=== PATIENT | male | born 1985 | race Caucasian/White ===

== ENCOUNTER 2023-05-20 14:24 | Outpatient (AMB) | payer BC, SELFPAY ==
--- NOTE | 2023-05-20 14:34 | A.OFFVIS_ITS ---
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 He has a pleasant 38-year-old male with prior history of hypertension, hyperlipidemia as well as obstructive sleep apnea. Patient uses CPAP regularly. He has been using his blood pressure medication on regular basis but notice that he continues to have some episodes of elevated blood pressures. He also has symptoms of palpitation which she describes as rapid heartbeat and sometimes skipped heartbeats. Comes here for further evaluation. There is no clear pattern to this. No associated symptoms. Denies any exertional chest pain or shortness of breath. No lightheadedness, syncope. He comes for further management of his risk factors as well as symptoms of pa lpitations. [facility] Medical History RAMIN (obstructive sleep apnea) Hyperlipidemia HTN (hypertension) Family History Father No problems noted. Mother HTN (hypertension) Maternal Aunt Sudden cardiac Social History Patient Tobacco Use Status: Never used Tobacco Review of Systems Const Denies chills, Denies daytime sleepiness, Denies fatigue, Denies fever(s), Denies frequent falls, Denies poor appetite, Denies snoring, Denies stops breathing during sleep, Denies weakness, Denies weight gain and Denies weight loss Eyes Denies loss of vision ENT Denies dizziness and Denies hearing loss Card Denies chest pain, Denies claudication, Denies leg edema, Denies lightheadedness, Denies palpitations, Denies dyspnea, Denies dyspnea on exertion and Denies orthopnea Resp Denies cough, Denies excessive phlegm production, Denies dyspnea, Denies dyspnea on exertion, Denies snoring and Denies wheezing GI Denies abdominal pain, Denies hematochezia, Denies change in bowel habits, Denies nausea and Denies vomiting Denies dysuria and Denies urinary frequency Musc Denies arthralgias, Denies muscle weakness, Denies numbness and Denies other (frequent falls) Skin/Breast Denies nail changes and Denies rash Neuro Denies Abnormal speech present, Denies dizziness, Denies frequent falls, Denies loss of vision, Denies memory loss, Denies numbness and Denies weakness Psych Denies depression and Denies memory loss Endo Denies fatigue and Denies palpitations Adolfo/Lymph Reports easy bruising and Reports other (anemia) Aller/Immun Denies wheezing Physical Exam Vital Signs: Last Vital Signs Pulse 91 05/20/23 14:39 BP 130/80 05/20/23 14:39 BMI result Body Mass Index 46.2 Const General: cooperative, comfortable, no acute distress, alert and awake Nutritional Appearance: obese morbidly obese Orientation/consciousness: patient oriented x3 Limitations: no limitations HEENT Head: Yes normocephalic and Yes atraumatic Neck Neck: Yes trachea midline, Yes supple and Yes no JVD Resp Effort & Inspection: normal respiratory effort Auscultation: clear to auscultation bilaterally Cardio Jugular venous distension: no JVD Palpation: normal PMI Rate: regular rate Rhythm: regular rhythm Heart sounds: S1 normal heart sound present, S2 normal heart sound present, no click, no gallops, no murmurs and no rubs GI Inspection: Yes obesity Auscultation: normal bowel sounds Skin General skin exam: no rashes or lesions noted Neuro General: patient oriented x3 and no focal motor deficits Speech: No Abnormal speech present Extrem General: Yes no clubbing, cyanosis or edema Psych Appearance: grossly normal Office Procedures EKG Details: EKG shows normal sinus rhythm normal EKG at 91 beats per minute [id number], Complete Assessment & Plan Assessment & Plan (1) Palpitations: Code(s): R00.2 - Palpitations Plan: Symptoms of palpitation this young man with risk factors of hypertension, obesity and sleep apnea. Atrial fibrillation needs to be ruled out. Most likely suggest isolated extra systoles such as PACs and PVCs. Will suggest a 14 day Holter monitor to further assess for the same. No pharmacotherapy is recommended. Continue CPAP therapy. Aggressive control of risk factors recommended. Continue to avoid stimulants. Stress mitigation strategies advised. (2) HTN (hypertension): Code(s): I10 - Essential (primary) hypertension Plan: Hypertension with borderline blood pressure control and still with episodes of elevated blood pressure. Have suggested him to start Norvasc 5 mg daily in addition to his losartan/hydrochlorothiazide therapy. Advised to monitor blood pressure at home with goal blood pressure less than and closer to 120/80. Suggest echocardiogram near future to evaluate for LV systolic and diastolic function to evaluate for biatrial chamber size and hypertensive heart disease. Further treatment based on the findings. He understands and agrees. Low-salt diet was discussed. Strongly encouraged to participate in aggressive weight loss program. For further screening can undergo coronary calcium score to evaluate for coronary atherosclerosis given his multiple risk factors. Will follow up in the clinic in 6 weeks time, sooner p.r.n.. Thank you for allowing me to partake in his care Orders: Orders ECG 14 day holter monitor 05/20/23 R00.2 - Palpitations CA echo transthoracic complete 05/20/23 I10 - Essential (primary) hypertension Complete Blood Count no Diff 05/20/23 I10 - Essential (primary) hypertension Basic Metabolic Panel 05/20/23 I10 - Essential (primary) hypertension Magnesium 05/20/23 I10 - Essential (primary) hypertension, I50.30 - Unspecified diastolic (congestive) heart failure TSH reflex Free T4 05/20/23 R00.2 - Palpitations Medications: New amlodipine (Norvasc) 5 mg PO DAILY 30 tabs 5RF R00.2 - Palpitations Coding Level of Care Code New Pt Level 4 (01730) Diagnoses Palpitations R00.2 HTN (hypertension) I10 CPT Codes EKG - CPT: 74998-[id number], Complete ([id number])
[2023-05-20 14:39] VITALS: BP 130/80; PULSE 91; BMI 46.2
== END 2023-05-20 15:08 | disposition home or self-care (01) ==
PROVIDERS: PCP Internal Medicine; Visit Provider Internal Medicine Cardiovascular Disease
DX: R00.2 Palpitations (principal); I10 Essential (primary) hypertension
CPT/HCPCS: 93010; 99204

== ENCOUNTER → 2023-05-20 14:24 | Outpatient (BNVA) | payer BC, SELFPAY | PROVIDERS: PCP Internal Medicine; Visit Provider Internal Medicine Cardiovascular Disease | DX: R00.2 Palpitations (principal); I10 Essential (primary) hypertension | CPT/HCPCS: 93005 ==

== ENCOUNTER → 2023-06-09 13:50 | Outpatient (REF) | payer BC, SELFPAY ==
--- NOTE | 2023-06-09 13:56 | CA_ITS ---
Transthoracic Echocardiogram Patient (Last, First, Middle): Neil Elder, Gender: Male Date of : 1985 Age: 38 Procedure Date: 06/09/2023 Procedure Type: Transthoracic Echocardiogram Location: OP Height: 165.1 cm Weight: 117.94 kg BSA: 2.21 m2 Heart Rate: 79 bpm BP: 130 / 80 mmHg Credit Representative: COREEN Referring MD: Guanaco Garcia MD Symptoms: I10 - Essential (primary) hypertension Study Quality: Adequate w contrast ECG Rhythm: Sinus Conclusions: - The left ventricular systolic function is low normal. The visually estimated ejection fraction is between 50-55%. - No obvious valvular pathology seen on this study. Findings Procedure Information Contrast agent, definity, is being given per protocol without apparent complications. The quality of the study was technically difficult. The study quality is limited by patients body habitus. Left Ventricle Normal left ventricular cavity size. The left ventricular systolic function is low normal. The visually estimated ejection fraction is between 50-55%. There is no evidence of regional wall motion abnormalities. Diastolic function is normal for age. Right Ventricle Normal right ventricular cavity size and systolic function. Atria Both atria are normal in size. Aortic Valve There is a normal trileaflet aortic valve. There is no aortic valve stenosis. There is no aortic valve regurgitation. Mitral Valve The mitral valve appears normal. There is no mitral valve regurgitation. There is no mitral valve stenosis. Pulmonic Valve The pulmonic valve is likely normal. Tricuspid Valve There is no tricuspid valve regurgitation. Tricuspid regurgitation envelope is inadequate for calculation of right ventricular systolic pressure. Great Vessels The asc aorta is normal in size. Venous The inferior vena cava was not well visualized. Pericardium/Pleural There is no evidence of pericardial effusion. Prior Study Comparison No prior study available for comparison. Recommendations, Care & Conclusions No obvious valvular pathology seen on this study. Measurements 2D Linear Measurements IVSd: 0.78 0.6-0.9/0.6-1.0 cm LVIDd: 5.15 3.9-5.3/4.2-5.9 cm LVIDd Index: 2.33 2.4-3.2/2.2-3.1 cm/m2 LVIDs: 3.79 2.0-3.6 cm LVPWd: 0.75 0.7-1.1 cm LA Diam: 3.50 2.7-3.8/3.0-4.0 cm LAIDs Index: 1.58 1.5-2.3 cm/m2 LV Mass: 168.36 67-162/88-224 g LV Mass Index: 76.18 43-95/49-115 g/m2 LVOT Diam: 1.90 3.0+(-)1.3 cm 2D Systolic Function EF 4C: 51.40 >55% EF 2C: 58.70 >55% EF BiP: 54.40 >55% Mitral Valve MV Pk E: 0.95 MV PK A: 0.76 MV Decel Time: 171.00 E/A: 1.20 E'Lateral: 10.40 E'Medial: 7.83 E/E' Med: 12.10 E/E' Lat: 9.10 PHT: 50.00 MVA PHT: 4.40 Decel Iron: 5.55 Aortic Valve AoV Pk Shabbir: 1.47 AoV Mn Shabbir: 0.97 AoV VTI: 0.27 AoV Pk Grad: 9.00 Aov Mn Grad: 5.00 DANISH Cont.VTI: 2.43 LVOT LVOT Pk Shabbir: 1.42 LVOT Mn Shabbir: 0.91 LVOT VTI: 0.23 LVOT Pk Grad: 8.00 LVOT Mn Grad: 4.00 LVOT Diam: 1.90 LVOT Area: 2.84 Diastolic Function MV Pk E: 0.95 MV Pk A: 0.76 E/A: 1.20 E'Medial: 7.83 E/E' Med: 12.10 E' Laterial: 10.40 E/E' Lat: 9.10 Right Ventricle TAPSE (mm): 19.90 TVS' Shabbir: 13.20 Tricuspid Valve RA Press: 3.00 Great Vessels Aorta Sinus of Valsalva: 2.90 2.0-3.5 cm Ao Asc: 3.00 2.1-3.4 cm Pulmonary Veins Pulm Vein S/D 1.20 Pulmonary Valve PV Pk Shabbir: 1.01 Peak PV Grad: 4.00 Updated in Other Vendor System with Status of Final Juan Alves MD electronically signed on 06/10/2023 11:10:45 AM with status of Final
--- NOTE | 2023-06-09 13:56 | HM_ITS ---
Conclusion: 1. Patient was monitored for total period of 13 days and 22 hours 2. Baseline was normal sinus rhythm with average heart of 91 beats per minute 3. No significant pauses noted 4. Frequent sinus tachycardia noted with 32% of time heart rate about 100 beats per minute 5. No significant arrhythmias noted 6. No patient reported events MTDD
== END ==
LOC: HO.CARD 13:50
PROVIDERS: PCP Internal Medicine; Visit Provider Internal Medicine Cardiovascular Disease
DX: R00.2 Palpitations (principal); I10 Essential (primary) hypertension
CPT/HCPCS: 93246; 93306; Q9957

== ENCOUNTER → 2023-06-09 13:56 | Outpatient (BNV) | payer BC, SELFPAY | PROVIDERS: PCP Internal Medicine; Visit Provider Internal Medicine | DX: R00.0 Tachycardia, unspecified (principal) | CPT/HCPCS: 93248; 93306 ==

== ENCOUNTER 2023-07-15 15:36 | Outpatient (AMB) | payer BC, SELFPAY ==
[2023-07-15 15:39] VITALS: BP 120/68; PULSE 87; BMI 44.0
--- NOTE | 2023-07-15 15:39 | A.OFFVIS_ITS ---
Vital Signs 07/15/23 15:39 Height 5 ft 4.5 in Weight 260 lb 2.327 oz BMI 44.0 BP 120/68 Blood Pressure Location Lt brachial Position Sitting Pulse 87 Pulse Source Pulse Oximeter Intake Visit Reasons: 6 week follow up Allergies No Known Allergies Allergy (Verified 05/20/23 14:44) Medication List - Last Reconciled 07/15/23 by Rupinder Munoz NP-C cyclobenzaprine 5 mg PO BID ezetimibe 10 mg PO DAILY losartan-hydrochlorothiazide 100-12.5 mg 1 tab PO DAILY naproxen 500 mg PO BID nortriptyline 50 mg PO BEDTIME rosuvastatin 40 mg PO DAILY HPI HPI 6 week follow up: Details: Neil is a 38-year-old male with past medical history of morbid obesity, hypertension, hyperlipidemia, sleep apnea with CPAP use who had an episode of heart palpitations while at work followed by ER evaluation without significant findings. He underwent a echocardiogram and Holter monitor and now presents for follow-up. Today he reports he has been doing well since his last visit. Not had any recurrent episodes where he felt his heart going fast. He does have a smart watch that does record some strips that he can see on his watch. Some of them say atrial fibrillation however when reviewed by me confirm these are sinus rhythm with motion artifact. No lightheadedness, presyncope, syncope, falls. No chest discomfort at rest or with activity. No shortness of breath, PND, orthopnea or edema. 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 He reports compliance with his CPAP mask. He tried the amlodipine and said it gave him headache and he is not taking it. Is taking his losartan/hydrochlorothiazide medication. [facility] Medical History (Updated 07/15/23 @ 16:29 by Rupinder Munoz NP-C) RAMIN (obstructive sleep apnea) Hyperlipidemia HTN (hypertension) Family History Father No problems noted. Mother HTN (hypertension) Maternal Aunt Sudden cardiac Social History Patient Tobacco Use Status: Never used Tobacco Review of Systems Const All systems reviewed & are unremarkable except as noted in HPI and below Denies weakness ENT Denies dizziness Card Denies chest pain, Denies chest pain with activity, Denies syncope, Denies rapid heart rate, Denies pedal edema, Denies edema, Denies leg edema, Denies lightheadedness, Denies palpitations, Denies dyspnea, Denies dyspnea on exertion and Denies orthopnea Resp Denies cough, Denies dyspnea and Denies dyspnea on exertion GI Denies hematochezia and Denies change in stool character Musc Denies abnormal gait, Denies muscle cramps, Denies muscle weakness, Denies numbness, Denies radiating pain into limb and Denies tingling Neuro Denies abnormal gait, Denies dizziness, Denies syncope, Denies numbness, Denies tingling and Denies weakness Endo Denies palpitations Physical Exam Vital Signs: Last Vital Signs Pulse 87 07/15/23 15:39 BP 120/68 07/15/23 15:39 BMI result Body Mass Index 44.0 Const Other: Morbid obesity General: cooperative, healthy appearing, comfortable and no acute distress Orientation/consciousness: patient oriented x3 Neck Neck: Yes normal visual inspection and Yes no JVD Resp Effort & Inspection: normal respiratory effort Auscultation: clear to auscultation bilaterally, no crackles, no rales, no rhonchi and no wheezes Cardio Jugular venous distension: no JVD Rate: regular rate Rhythm: regular rhythm Heart sounds: S1 normal heart sound present, S2 normal heart sound present, no murmurs and no rubs Skin General skin exam: no rashes or lesions noted Neuro General: patient oriented x3 Extrem General: Yes normal to inspection, No no pedal edema and No calf tenderness Psych Appearance: grossly normal Mental Status: mental status grossly normal Speech and movement: Normal speech and movement present Assessment & Plan Assessment & Plan (1) Palpitations: Code(s): R00.2 - Palpitations Category: Medical Plan: Episode of heart palpitations where he was at work and felt his heart going very rapidly. EMS was called and he declined ER evaluation at that time since he was in [place]. He had his pick him up and bring him to [facility] here in [place]. He reports no significant findings were identified at that time. He has not had episodes of rapid heartbeat since then. He does have a smart watch/ HAILEE which does show 2 strips that are labeled as atrial fibrillation. When reviewed by me there is clear P waves and regular rhythm. There is baseline motion artifact. EKG done on last visit shows normal sinus rhythm, rate 91. Holter monitor done on 06/09/2023 shows sinus rhythm with average heart rate 91, 32% of the time heart rate greater than 100. His echocardiogram showed EF 50-55%, normal valves, no evidence of regional wall motion abnormality. He is very active throughout the day and can walk up to 21,000 steps while at work. This can account for his mildly elevated heart rate. He does have a low normal EF however echo was technically difficult as patient has morbid obesity. His blood pressure is well controlled. At this time no medication changes made. Reviewed all the above with him. It is possible he had an episode of SVT. Discussed reduction in stimulants, caffeinated beverages. Maintain good hydration and get adequate rest. Continue with CPAP use. If he has recurrent episodes of rapid palpitations then will consider a cardiac event monitor. Cardiology follow-up in 6 months, sooner if needed. (2) HTN (hypertension): Code(s): I10 - Essential (primary) hypertension Category: Medical Plan: As above (3) RAMIN (obstructive sleep apnea): Code(s): G47.33 - Obstructive sleep apnea (adult) (pediatric) Category: Medical Plan: Compliant with CPAP Plan Time spent on chart review, documentation, interview and assessment Coding Level of Care Code Est Pt Level 3 (35842) Diagnoses Palpitations R00.2 HTN (hypertension) I10 RAMIN (obstructive sleep apnea) G47.33 Time Spent (min) 24
== END 2023-07-15 16:04 | disposition home or self-care (01) ==
PROVIDERS: PCP Internal Medicine; Visit Provider Nurse Practitioner Family
DX: R00.2 Palpitations (principal); I10 Essential (primary) hypertension; G47.33 Obstructive sleep apnea (adult) (pediatric)
CPT/HCPCS: 99213

== ENCOUNTER → 2023-07-15 15:36 | Outpatient (BNVA) | payer BC, SELFPAY | PROVIDERS: PCP Internal Medicine; Visit Provider Nurse Practitioner Family ==

== ENCOUNTER 2024-01-13 15:37 | Outpatient (AMB) | payer BC, SELFPAY ==
[2024-01-13 15:41] VITALS: BP 108/72; PULSE 82; BMI 45.1
--- NOTE | 2024-01-13 15:41 | MHC.OFFVIS ---
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 Allergies No Known Allergies Allergy (Verified 01/13/24 15:43) Medication List - Last Reconciled 01/13/24 by Rupinder Munoz, MALIK-C cyclobenzaprine 5 mg PO BID ezetimibe 10 mg PO DAILY losartan-hydrochlorothiazide 100-12.5 mg 1 tab PO DAILY metformin 1,000 mg PO BID naproxen 500 mg PO BID nortriptyline 50 mg PO BEDTIME rosuvastatin 40 mg PO DAILY HPI HPI 6m follow up: Details: Neil is a 38-year-old male with past medical history of morbid obesity, hypertension, hyperlipidemia, sleep apnea with CPAP use who had an episode of heart palpitations while at work followed by ER evaluation without significant findings. He underwent a echocardiogram and Holter monitor and now presents for follow-up. Today he reports he has been doing well since his last visit In June. He has not had any recurrent rapid heart palpitations. He has not recorded any new strips on his smart watch. No lightheadedness, presyncope, syncope, falls. No chest discomfort at rest or with activity. No shortness of breath, PND, orthopnea or edema. 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 He reports compliance with his CPAP mask. Is taking his losartan/hydrochlorothiazide medication. [facility] Medical History RAMIN (obstructive sleep apnea) Hyperlipidemia HTN (hypertension) Family History Father No problems noted. Mother HTN (hypertension) Maternal Aunt Sudden cardiac Social History Patient Tobacco Use Status: Never used Tobacco Review of Systems Const All systems reviewed & are unremarkable except as noted in HPI and below ENT Denies dizziness Card Denies chest pain, Denies chest pain at rest, Denies chest pain with activity, Denies rapid heart rate, Denies pedal edema, Denies edema, Denies leg edema, Denies lightheadedness, Denies palpitations, Denies dyspnea, Denies dyspnea on exertion and Denies orthopnea Resp Denies cough, Denies dyspnea and Denies dyspnea on exertion GI Denies hematochezia and Denies change in stool character Musc Denies abnormal gait, Denies limited range of motion, Denies muscle cramps, Denies muscle weakness, Denies numbness, Denies radiating pain into limb, Denies stiffness and Denies tingling Neuro Denies abnormal gait, Denies dizziness, Denies numbness and Denies tingling Endo Denies palpitations Physical Exam Vital Signs: Last Vital Signs Pulse 82 01/13/24 15:41 BP 108/72 01/13/24 15:41 BMI result Body Mass Index 45.1 Const Other: Morbid obesity General: cooperative, healthy appearing, comfortable and no acute distress Orientation/consciousness: patient oriented x3 Neck Neck: Yes normal visual inspection and Yes no JVD Resp Effort & Inspection: normal respiratory effort Auscultation: clear to auscultation bilaterally, no crackles, no rales, no rhonchi and no wheezes Cardio Jugular venous distension: no JVD Rate: regular rate Rhythm: regular rhythm Heart sounds: S1 normal heart sound present, S2 normal heart sound present, no murmurs and no rubs Skin General skin exam: no rashes or lesions noted Neuro General: patient oriented x3 Extrem General: Yes normal to inspection, No no pedal edema and No calf tenderness Psych Appearance: grossly normal Mental Status: mental status grossly normal Speech and movement: Normal speech and movement present Assessment & Plan Assessment & Plan (1) Palpitations: Code(s): R00.2 - Palpitations Category: Medical Plan: Episode of heart palpitations while at work: His heart felt like it was going very rapidly. EMS was called and he declined ER evaluation at that time since he was in [place]. He had his pick him up and bring him to [facility] here in [place]. Once in the ER, palpitations had resolved and no significant findings were identified. He has not had Anyepisodes of rapid heartbeat since then. He does have a smart watch/ HAILEE and last visit showed me 2 strips that are labeled as atrial fibrillation however when reviewed by me there are clear P waves and regular rhythm. There is baseline motion artifact but no definite AFib.. EKG done on last visit shows normal sinus rhythm, rate 91. Holter monitor done on 06/09/2023 shows sinus rhythm with average heart rate 91, 32% of the time heart rate greater than 100. His echocardiogram showed EF 50-55%, normal valves, no evidence of regional wall motion abnormality. He is very active throughout the day and can walk up to 21,000 steps while at work. This can account for his mildly elevated heart rate. He does have a low normal EF however echo was technically difficult as patient has morbid obesity. His blood pressure is well controlled. At this time no medication changes made. He continues to report no recurrent heart palpitations. It is possible he had an episode of SVT. Reviewed this with him and discussed ongoing reduction in stimulants, caffeinated beverages, Maintain good hydration and get adequate rest. Continue with CPAP use. If he has recurrent episodes of rapid palpitations then will plan for a repeat Holter or cardiac event monitor. At this time will put his cardiology follow-up as needed. (2) HTN (hypertension): Code(s): I10 - Essential (primary) hypertension Category: Medical Plan: As above (3) RAMIN (obstructive sleep apnea): Code(s): G47.33 - Obstructive sleep apnea (adult) (pediatric) Category: Medical Plan: Compliant with CPAP Plan Time spent on chart review, documentation, interview and assessment Coding Level of Care Code Est Pt Level 3 (23962) Diagnoses Palpitations R00.2 HTN (hypertension) I10 RAMIN (obstructive sleep apnea) G47.33 Time Spent (min) 24
== END 2024-01-13 16:10 | disposition home or self-care (01) ==
PROVIDERS: PCP Internal Medicine; Visit Provider Nurse Practitioner Family
DX: R00.2 Palpitations (principal); I10 Essential (primary) hypertension; G47.33 Obstructive sleep apnea (adult) (pediatric)
CPT/HCPCS: 99213

== ENCOUNTER 2024-11-01 17:06 | Emergency (ER) | payer BC, SELFPAY ==
--- NOTE | ~2024-11-01 | US_ITS ---
CLINICAL HISTORY: R testicular pain Ultrasound scrotum. COMPARISON: None provided. Technique: Real time sonographic imaging, including color-flow imaging, was performed by the vacuum metalizer operator. Multiple personnel representative static images were saved for review. FINDINGS: Right side: Right testicle is normal in size and echotexture. Normal color flow and spectral tracing. No hydrocele. There is increased Doppler flow within the right heterogeneous epididymis. Right testicle: 4.1 x 2.3 x 2.6 cm Left side: Left testicle is normal in size. Few small testicular microlithiasis present. Normal color flow and spectral tracing. No hydrocele. Mild dilatation of the pampiniform plexus measuring up to 3 mm. Normal left epididymis. Left testicle: 4.2 x 1.7 x 2.7 cm IMPRESSION: 1. Right-sided epididymitis. 2. Mild left varicocele. This document has been electronically signed by: Keyon Vaughn MD on 11/01/2024 18:43:01
--- NOTE | ~2024-11-01 | US_ITS ---
CLINICAL HISTORY: R testicular pain Ultrasound scrotum. COMPARISON: None provided. Technique: Real time sonographic imaging, including color-flow imaging, was performed by the shook splicer. Multiple product sales representative static images were saved for review. FINDINGS: Right side: Right testicle is normal in size and echotexture. Normal color flow and spectral tracing. No hydrocele. There is increased Doppler flow within the right heterogeneous epididymis. Right testicle: 4.1 x 2.3 x 2.6 cm Left side: Left testicle is normal in size. Few small testicular microlithiasis present. Normal color flow and spectral tracing. No hydrocele. Mild dilatation of the pampiniform plexus measuring up to 3 mm. Normal left epididymis. Left testicle: 4.2 x 1.7 x 2.7 cm IMPRESSION: 1. Right-sided epididymitis. 2. Mild left varicocele. This document has been electronically signed by: Keyon Vaughn MD on 11/01/2024 18:43:01
[2024-11-01 17:40] VITALS: BP 145/68; PULSE 85; RESP 16; TEMP 37; O2SAT 98; BMI 37.9
--- NOTE | 2024-11-01 17:41 | ED.MALEGU ---
HPI - Male Genitourinary General Chief complaint: Urogenital-Male Stated complaint: pain in testicle Time Seen by Provider: 11/01/24 19:27 Source: patient Mode of arrival: ambulatory History of Present Illness ED Provider: [facility] Narrative: 39-year-old male, monogamous, , denies any sexual relations outside of his marriage states that he has had some blood with his ejaculate and also describes that he has also had significant right testicular pain that has continued to worsen over the past 2-3 days. Related Data Home Medications ?Medication ?Instructions ?Recorded ?Confirmed cyclobenzaprine 5 mg tablet 5 mg PO BID 05/20/23 01/13/24 ezetimibe 10 mg tablet 10 mg PO DAILY 05/20/23 01/13/24 losartan 100 1 tab PO DAILY 05/20/23 01/13/24 mg-hydrochlorothiazide 12.5 mg tablet naproxen 500 mg tablet 500 mg PO BID 05/20/23 01/13/24 nortriptyline 50 mg capsule 50 mg PO BEDTIME 05/20/23 01/13/24 rosuvastatin 40 mg tablet 40 mg PO DAILY 05/20/23 01/13/24 metformin 1,000 mg tablet 1,000 mg PO BID 01/13/24 01/13/24 Previous Rx's ?Medication ?Instructions ?Recorded levofloxacin 500 mg tablet 500 mg PO DAILY #9 tabs 11/01/24 Allergies Allergy/AdvReac Type Severity Reaction Status Date / Time No Known Allergies Allergy Verified 11/01/24 17:41 Review of Systems Review of Systems: Pertinent positives and negatives as stated in HPI [facility] Past Medical History Attestation statement: The following information was validated with the patient. Source: nursing notes reviewed Medical History RAMIN (obstructive sleep apnea) Hyperlipidemia HTN (hypertension) Family History Family History Father No problems noted. Mother HTN (hypertension) Maternal Aunt Sudden cardiac Social History Social History Patient Tobacco Use Status: Never used Tobacco Smoked in Last 30 Days: No Use of substances other than those prescribed or required for medical reasons: No Physical Exam Exam: Exam: VITAL SIGNS: Reviewed. GENERAL: Well developed, well nourished, in no acute distress. HEAD: Normocephalic/atraumatic EYES: PERRLA, EOMI EARS: Ext canals without abnormality NOSE: Nares patent bilateral OROPHARYNX: no oral lesions noted, posterior pharynx clear NECK: Supple, no adenopathy LUNGS: Normal breath sounds. No adventitious sounds or accessory muscle use. CARDIOVASCULAR: Regular rate and rhythm without noted murmurs ABDOMEN: Soft, non-tender, non-distended with bowel sounds. : Uncircumcised male, there is mild erythema to the anterior surface of the scrotum but no extension posterior, no induration or fluctuance, there is tenderness to palpation of the right testicle and epididymis and no pain on palpation of the left testicle and epididymis. There are no lesions or ulcerations noted on the penis. MUSCULOSKELETAL: No tenderness, deformities, or effusions noted on gross inspection. EXTREMITIES: No cyanosis, clubbing or edema. SKIN: Inspection of the skin reveals no rashes NEUROLOGIC: Alert and oriented x 4. Strength and sensation to light touch were grossly intact x 4. Vital Signs: Vital Signs: Last Vital Signs Temp 98.1 F 11/01/24 19:24 Pulse 82 11/01/24 19:24 Resp 12 11/01/24 19:24 BP 137/87 11/01/24 19:24 Pulse Ox 98 11/01/24 19:24 O2 Del Method Room Air 11/01/24 19:24 BMI result Body Mass Index 37.9 Course Course Course Narrative: This is a Rapid Medical Examination (RME) performed by Mony Clarke PA-C in triage. Full HPI, ROS, assessment and treatment plan per primary provider in the Main ED. Hx: 39 yo M here for eval of right testicular pain/swelling since yesterday. also reports an prolonged erection lasting x hours a few days ago before resolving. no hx of ilicit substance use. reports blood tinge to his ejaculate. no urinary sx. no concern for STDs. no open wounds/ lesions. PE/vitals: area not visualized in triage. Plan: UA, ctng, ultrsound. 39-year-old male with history and clinical presentation, DD DX: Minimal suspicion for testicular torsion but will rule out, suspect epididymis orchitis. Will obtain urinary sample for STI as well as urinary tract infection. 2028: I reviewed and interpreted all investigations and there is evidence of UTI as well as my interpretation is in agreement with radiology's impression that there are findings of the ultrasound consistent with right epididymitis. Gonorrhea and chlamydia are pending, however I will treat patient empirically for non STI epididymitis. Medical Decision Making Lab Data Labs: Lab Results 11/01/24 Range/Units 19:33 Urine Color Yellow Urine Appearance Clear Urine pH 6.0 (5.0-9.0) Ur Specific [place] >= 1.030 H (1.005-1.025) Urine Protein Trace (Neg-Trace) mg/dL Urine Glucose (UA) Negative (Negative) mg/dL Urine Ketones Trace (Negative) mg/dL Urine Blood Negative (Negative) Urine Nitrite Negative (Negative) Ur Leukocyte Esterase Trace H (Negative) Urine RBC 0-2 (0-2) /HPF Urine WBC 6-10 H (0-5) /HPF Ur Squamous Epith Cells 0-2 (0-2) /HPF Urine Bacteria None Seen (None Seen) Hyaline Casts 0-2 (0-2) /LPF Discharge Plan Discharge Clinical Impression: Epididymo-orchitis Patient Disposition: Home, Self-Care Instructions: Epididymo-Orchitis (ED) Additional Instructions: Complete the entire course of antibiotics as prescribed. Tylenol 1000 mg, orally, every 6 hours as needed for pain control. Do not exceed 4000 mg within 24 hours. Ibuprofen 400 mg, orally with milk or food, every 6 hours as needed for pain control. I recommend taking these 2 together for improved symptom relief. Elevate the scrotum at night while sleeping, stick to standard tighty whiteys throughout the day do not wear Boxer's. You will need to log into the patient portal to obtain the remaining results of your workup today. Please follow-up with your primary care doctor and do not hesitate to return for any acute worsening of symptoms. Prescriptions: New levofloxacin 500 mg tablet 500 mg PO DAILY Qty: 9 0RF No Action cyclobenzaprine 5 mg tablet 5 mg PO BID losartan-hydrochlorothiazide 100-12.5 mg tablet 1 tab PO DAILY rosuvastatin 40 mg tablet 40 mg PO DAILY nortriptyline 50 mg capsule 50 mg PO BEDTIME ezetimibe 10 mg tablet 10 mg PO DAILY naproxen 500 mg tablet 500 mg PO BID metformin 1,000 mg tablet 1,000 mg PO BID Referrals: Antonia Schroeder MD [Primary Care Provider, Internal Medicine] Print Language: Belarusian
[2024-11-01 19:24] VITALS: BP 137/87; PULSE 82; RESP 12; TEMP 36.7; O2SAT 98
[2024-11-01 19:41] LABS: Appearance Urine Clear; Glucose Urine UA Negative (Negative); PH 6.0 (5.0-9.0); Specific Gravity - Urine >= 1.030 (1.005-1.025); UMIC TRIGGER UACC YES
[2024-11-01 19:44] LABS: UACC Culture Trigger YES
[2024-11-01 20:35] VITALS: BP 126/83; PULSE 79; RESP 16; TEMP 36.7; O2SAT 98
--- OUTSIDE RECORDS SUMMARY | 2024-11-01 20:44 | XMS_ITS ---
Author Name [facility] Organization Unknown History of Medication Use Medication Directions Dispensed Refills Start Date End Date Stat us propranolol (INDERAL LA) 120 MG 24 hr capsule 06/17/2015 active Encounters Encounter Type Encounter Reason Primary Diagnosis Location Date Ambulatory Encounter for ot her administrative examinations [facility] 05/26/2022 Ambulatory [place] [facility] 12/26/2021 Care Team Organization Name Specialty Phone Email Start Date End Da te [facility] NO PCP Primary Care 12/26/2021 12/26/2021 [facility] P[facility],No Primary Care 12/26/2021
--- OUTSIDE RECORDS SUMMARY | 2024-11-01 20:44 | XMS_ITS | Clinical Summary ---
Author Organization Formerly [facility] Address [address] [place] [address] Care Team Providers Care Financial Business Analyst Name Role Phone Pcp, No Primary Care Provider Unavailabl e Allergies No known active allergies Medications ibuprofen (MOTRIN) 800 mg tabletIndication s:Laceration of finger of left hand, initial encounter 1 po tid prn 30 tablet 0 08/02/2015 Active propranolol (INDERAL LA) 120 MG 24 hr capsule 06/17/2015 Ac tive meclizine (ANTIVERT) 25 MG tablet 05/19/2022 Active nortriptyline (PAMELOR) 50 MG capsule 05/19/2022 Active Active Problems No known active problems Immunizations Immunization Administration Dates Next Due Influenza Inactivated/Split Preservative Free IM 12/26/2021 Social History Tobacco Use Types Packs/Day Years Used Date Smoking Tobacco: Never Alcohol Use Standard Drinks/Week Comments Not Asked 0 (1 standard drink = 0.6 oz pur e alcohol) Sex and Gender Information Value Date Recorded Sex Assigned at Not on file Legal Sex Male 8:59 AM EDT Gender Identity Not on file Sexual Orientation Not on file Last Filed Vital Signs Vital Sign Reading Time Taken Comments Blood Pressure 110/80 05/26/2022 2:29 PM EDT Pulse 74 05/26/2022 2:29 PM EDT Temperature 36.6 C (97.9 F) 05/26/2022 2:29 PM EDT Respiratory Rate - - Oxygen Saturation 98% 05/26/2022 2:29 PM EDT Inhaled Oxygen Concentration - - Weight 113 kg (250 lb) 05/26/2022 2:29 PM EDT Height 165.1 cm (5' 5 ) 05/26/2022 2:29 PM EDT Body Mass Index 41.6 05/26/2022 2:29 PM EDT Plan of Treatment Health Maintenance Due Date Last Done Comments Hepatitis C Virus Screening 1985 HIV Screening 1998 DTaP/Tdap/Td Vaccines (1 - Tdap) 01/30/2004 Hepatitis B Vaccines (1 of 3 - 19+ 3-dose series) 01/30/2004 HPV Vaccines (1 - 3-dose SCD M series) 01/30/2012 Influenza Vaccine 09/22/2024 12/26/2021 COVID-19 Vaccine (1 - 2023-2 5 season) 2024 Pneumococcal Vaccine: Pediat dedra (0-5 Years) and At-Risk Patients (6 to 49 Years) Aged Out No longer eligible b ased on patient's age to complete this topic Insurance Care Teams Financial Business Analyst Relationship Specialty Start Date End Date Pcp, No PCP - General General Medicine 08/02/15
--- OUTSIDE RECORDS SUMMARY | 2024-11-01 20:44 | XMS_ITS | Clinical Summary ---
Author Organization [address] Address [address] [place] [address] Phone Care Team Providers Care Felting Machine Operator Name Role Phone Antonia Schroeder MD Primary Care Provider [phone] Social History Tobacco Use Types Packs/Day Years Used Date Smoking Tobacco: Never Assessed Sex and Gender Information Value Date Recorded Sex Assigned at Male 06/05/2024 3:45 PM EDT Legal Sex Male 10:26 AM EST Gender Identity Male 06/05/2024 3:45 PM EDT Sexual Orientation Straight 06/05/2024 3: 45 PM EDT Plan of Treatment Health Maintenance Due Date Last Done Comments Diabetes: Annual Foot Exam 1995 Diabetes: Annual Retina Eye Exam 1995 Hepatitis B Vaccines (1 of 3 - 19+ 3-dose series) 01/30/2004 Pneumococcal Vaccine: Pediatrics (0 to 5 Years) and At-Risk Patients (6 to 49 Years) (1 of 2 - PCV) 01/30/2004 HIV Screening 01/20/2022 Hepatitis C Screening 01/20/2022 Social Influencers of Health Screening 01/20/2022 Depression Screening 02/23/2024 COVID-19 Vaccine (3 - 2024-2 6 season) 2024 07/06/2020, 06/07/2020 Influenza Vaccine (#1) 2024 Diabetes: Blood Sugar Contro l Test (HGBA1C) 12/05/2024 06/05/2024, 01/17/2024 Diabetes: Annual Urine Albumin-Creatinine Ratio (uACR) 01/16/2025 01/17/2024 Diabetes: Annual GFR (Glomerular Filtration Rate) 06/05/2025 06/05/2024, 01/17/2024 Hypertension/CHF/CAD Annual BMP Blood Test 06/05/2025 06/05/2024, 01/17/2024 DTaP,Tdap,and Td Vaccines (2 - Td or Tdap) 08/01/2025 08/02/2015 Cholesterol Screening (Lipid Panel) 06/05/2029 06/05/2024, 01/17/2024 HIB Vaccines Aged Out No longer eligi ble based on patient's age to complete this topic HPV Vaccines Aged Out No longer eligi ble based on patient's age to complete this topic Hepatitis A Vaccines Aged Out No long er eligible based on patient's age to complete this topic IPV Vaccines Aged Out No longer eligi ble based on patient's age to complete this topic MMR Vaccines Aged Out No longer eligi ble based on patient's age to complete this topic Meningococcal ACWY Vaccine Aged Out N o longer eligible based on patient's age to complete this topic Meningococcal B Vaccine Aged Out No l onger eligible based on patient's age to complete this topic RSV Immunization Patients Under 20 months Aged Out No longer eligible b ased on patient's age to complete this topic Varicella Vaccines Aged Out No longer eligible based on patient's age to complete this topic Procedures Procedure Name Priority Date/Time Associated Diagnosis Comments COMPREHENSIVE METABOLIC PANEL Routine 06/05/2024 3:44 PM EDT Diabetes mellitus ([facility] V24, [facility] V28) Mixed hyperlipidemia Obstructive sleep apnea (adult) (pediatric) Essential hypertension, malignant HEMOGLOBIN A1C Routine 06/05/2024 3:44 PM EDT Diabetes mellitus ([facility] V24, [facility] V28) Mixed hyperlipidemia Obstructive sleep apnea (adult) (pediatric) Essential hypertension, malignant LIPID PANEL WITH REFLEX TO DIRECT LDL Routine 06/05/2024 3:44 PM EDT Diabetes mellitus ([facility]/H[facility] V24, [facility] V28) Mixed hyperlipidemia Obstructive sleep apnea (adult) (pediatric) Essential hypertension, malignant MICROALBUMIN CREATININE URINE RATIO Routine 01/17/2024 3:37 PM EST Diabetes mellitus ([facility]/HCC V24, [facility] V28) Morbid obesity ([facility] V24, [facility] V28) Mixed hyperlipidemia Nonspecific elevation of levels of transaminase or lactic acid dehydrogenase (LDH) from Last 3 Months or Most Recently Relevant to Health Maintenance Results * (ABNORMAL) Lipid panel with reflex to direct LDL (06/05/2024 3:44 PM EDT) Pathologist [facility] Cholesterol 229(H) 0 - 200 mg/dL LAB CHEMISTRY METHOD 06/05/2024 5:08 PM EDT [facility] Triglycerides 358(H) 0 - 150 mg/dL LAB CHEMISTRY METHOD 06/05/2024 5:08 PM EDT [facility] HDL 32(L) >=40 mg/dL LAB CHEMISTRY METHOD 06/05/2024 5:08 PM EDT [facility] LDL Calculated 125(H) 0 - 100 mg/dL LAB CHEMISTRY METHOD 06/05/2024 5:08 PM EDT [facility] VLDL Cholesterol Carlos Eduardo 71.6 mg/dL LAB CHEMISTRY METHOD 06/05/2024 5:08 PM EDT [facility] Non HDL Chol. (LDL+VLDL) 197(H) <145 mg/dL LAB CHEMISTRY METHOD 06/05/2024 5:08 PM EDT [facility] Chol/HDL Ratio 7.2(H) 0.0 - 4.4 LAB CHEMISTRY METHOD 06/05/2024 5:08 PM EDT [facility] Blood Venous blood specimen / Unknown Venipuncture / Unknown 06/05/2024 3:44 PM EDT 06/05/2024 4:07 PM EDT us Antonia Schroeder MD LAB BLOOD ORDERABLES Final Re sult [facility] [address] [place] [address], * Hemoglobin A1c (06/05/2024 3:44 PM EDT) Pathologist [facility] Hemoglobin A1C 6.3 <6.5 % LAB CHEMISTRY METHOD 06/05/2024 10:12 PM EDT [facility] Mean Bld Glu Estim. 134 mg/dL LAB CHEMISTRY METHOD 06/05/2024 10:[address] [facility] Blood Venous blood specimen / Unknown Venipuncture / Unknown 06/05/2024 3:44 PM EDT 06/05/2024 4:07 PM EDT us Antonia Schroeder MD LAB BLOOD ORDERABLES Final Re sult [facility] [address] [place] [address], [place] [phone] * Comprehensive metabolic panel (06/05/2024 3:44 PM EDT) Sodium 141 133 - 145 mmol/L LAB CHEMISTRY METHOD 06/05/2024 5:[address] [facility] Potassium 3.8 3.5 - 5.5 mmol/L LAB CHEMISTRY METHOD 06/05/2024 5:[address] [facility] Chloride 109 96 - 110 mmol/L LAB CHEMISTRY METHOD 06/05/2024 5:[address] [facility] CO2 28 21 - 32 mmol/L LAB CHEMISTRY METHOD 06/05/2024 5:[address] [facility] Anion Gap 4 3 - 11 LAB CHEMISTRY METHOD 06/05/2024 5:[address] [facility] Glucose 76 70 - 100 mg/dL LAB CHEMISTRY METHOD 06/05/2024 5:[address] [facility] BUN 16 5 - 25 mg/dL LAB CHEMISTRY METHOD 06/05/2024 5:[address] [facility] Creatinine 1.14 0.70 - 1.30 mg/dL LAB CHEMISTRY METHOD 06/05/2024 5:[address] [facility] eGFR 84 >=60 mL/min/1. 73m2 LAB CHEMISTRY METHOD 06/05/2024 5:08 PM T [facility] Comment:Calculation based on the Chronic Kidney Disease Epidemiology Collaboration (CKD-EPI) equation refit without adjustment for race. BUN/Creatinine Ratio 14.0 LAB CHEMISTRY METHOD 06/05/2024 5:08 PM T [facility] Calcium 8.9 8.5 - 10.5 mg/dL LAB CHEMISTRY METHOD 06/05/2024 5:[address] [facility] AST (SGOT) 27 10 - 42 unit/L LAB CHEMISTRY METHOD 06/05/2024 5:[address] [facility] ALT (SGPT) 53 10 - 60 unit/L LAB CHEMISTRY METHOD 06/05/2024 5:[address] [facility] Alkaline Phosphatase 62 42 - 121 unit/L LAB CHEMISTRY METHOD 06/05/2024 5:[address] [facility] Total Protein 7.4 6.0 - 8.0 g/dL LAB CHEMISTRY METHOD 06/05/2024 5:[address] [facility] Albumin 3.8 3.2 - 5.0 g/dL LAB CHEMISTRY METHOD 06/05/2024 5:[address] [facility] Total Bilirubin 0.3 0.0 - 1.4 mg/dL LAB CHEMISTRY METHOD 06/05/2024 5:[address] [facility] Blood Venous blood specimen / Unknown Venipuncture / Unknown 06/05/2024 3:44 PM EDT 06/05/2024 4:07 PM EDT us Antonia Schroeder MD LAB BLOOD ORDERABLES Final Re sult [facility] [address] [place] [address], [place] [phone] * Microalbumin creatinine urine ratio (01/17/2024 3:37 PM EST) Creatinine, Urine 160.0 mg/dL LAB CHEMISTRY METHOD 01/17/2024 7:54 PM EST [facility] Microalb, Ur 15.8 0.0 - 29.0 mg/L LAB CHEMISTRY METHOD 01/17/2024 7:54 PM EST [facility] Microalb/Creat Ratio 10 <30 mg/g creat LAB CHEMISTRY METHOD 01/17/2024 7:54 PM EST [facility] Urine Urine specimen obtained by clean catch procedure / Unknown Non-blood Collection / Unknown 01/17/2024 3:37 PM EST 01/17/2024 3:37 PM EST Antonia Schroeder MD LAB URINE ORDERABLES Final Re sult [facility] [address] [place] [address], from Last 3 Months or Most Recently Relevant to Health Maintenance Insurance [facility]) Care Teams Felting Machine Operator Relationship Specialty Start Date End Date Antonia Schroeder MD [address] PCP - General Internal Medicine 07/11/21
--- OUTSIDE RECORDS SUMMARY | 2024-11-01 20:44 | XMS_ITS | Encounter Summary ---
Author Organization [facility] Address [address] [place] [address] Care Team Providers Care Meter Record Clerk Name Role Phone Pcp, No Primary Care Provider Unavailabl e Encounter Details Date Type Department Care Team (Late st Contact Info) Description 12/27/2020 Scanned Document [address] [phone] Provider, Generic Social History Tobacco Use Types Packs/Day Years Used Date Smoking Tobacco: Never Alcohol Use Standard Drinks/Week Comments Not Asked 0 (1 standard drink = 0.6 oz pur e alcohol) Sex and Gender Information Value Date Recorded Sex Assigned at Not on file Legal Sex Male 8:59 AM EDT Gender Identity Not on file Sexual Orientation Not on file documented as of this encounter Plan of Treatment Not on file documented as of this encounter Visit Diagnoses Not on filedocumented in this encounter Care Teams Meter Record Clerk Relationship Specialty Start Date End Date Pcp, No PCP - General General Medicine 08/02/15 documented as of this encounter
--- OUTSIDE RECORDS SUMMARY | 2024-11-01 20:44 | XMS_ITS | Encounter Summary ---
Author Organization [facility] Address [address] [place] [address] Care Team Providers Care Carpenter Packing Name Role Phone Pcp, No Primary Care Provider Unavailabl e Encounter Details Date Type Department Care Team (Late st Contact Info) Description 08/04/2015 Scanned Document [address] [phone] Provider, Generic Social History Tobacco Use Types [...] on filedocumented in this encounter Care Teams Carpenter Packing Relationship Specialty Start Date End Date Pcp, No PCP - General General Medicine 08/02/15 documented as of this encounter
--- OUTSIDE RECORDS SUMMARY | 2024-11-01 20:44 | XMS_ITS | Clinical Summary ---
Author Organization [facility] Address [address] [place] [address] Care Team Providers Care Char Conveyor Tender Cellar Name Role Phone Unavailable Primary Care Provider Unavailabl e Source Comments PLEASE NOTE, if this patient is a minor, it may be UNLAWFUL to discuss sensitive information that is contained in these records (such as FAMILY PLANNING, MENTAL HEALTH or SUBSTANCE ABUSE) with the minor patient's parent or other person without the patient's specific authorization.[facility] Medications No known medications Active Problems Problem Noted Date Diagnosed Date Diabetes (CMS & [facility]) 03/20/2023 Social History Tobacco Use Types Packs/Day Years Used Date Smoking Tobacco: Never Assessed Social Connections Answer Date Recorded Connectedness 0 11/12/2023 Financial Resource Strain Answer Date R ecorded Financial Resource Strain 0 2020 Stress Answer Date Recorded Stress 0 10/05/2020 Physical Activity Answer Date Recorded Physical Activity 0 10/05/2020 Food Insecurity Answer Date Recorded Food 0 11/18/2023 Transportation Needs Answer Date Record ed Transportation 0 10/05/2020 Housing Stability Answer Date Recorded Housing 0 10/05/2020 Safety and Environment Answer Date Uri rded Safety 0 10/05/2020 Utilities Answer Date Recorded Utilities 0 10/05/2020 Employment Answer Date Recorded Stress 0 11/12/2023 Sex and Gender Information Value Date Recorded Sex Assigned at Male 02/12/2021 1:41 PM PST Legal Sex Male 7:10 AM PDT Gender Identity Male 02/12/2021 1:41 PM PST Sexual Orientation Straight 02/12/2021 1: 41 PM PST Last Filed Vital Signs Vital Sign Reading Time Taken Comments Blood Pressure 137/98 09/03/2022 3:06 PM EDT Pulse 84 09/03/2022 3:06 PM EDT Temperature - - Respiratory Rate - - Oxygen Saturation - - Inhaled Oxygen Concentration - - Weight - - Height - - Body Mass Index - - Plan of Treatment Health Maintenance Due Date Last Done Comments Anxiety Screening 1985 Dental FMX/Pano 1985 Diabetes Foot Exam 1985 Hemoglobin A1c 1985 Hepatitis C Screening 1985 Lipid Screening 1985 Serum Creatinine 1985 Tobacco Screening 1985 Urine Albumin Creatinine Rat io Screening 1985 Retinopathy Screening 1998 HIV Screening 01/30/2000 Imm-DTaP/Tdap/Td (1 - Tdap) 01/30/2004 Imm-Hepatitis B (1 of 3 - 19 + 3-dose series) 01/30/2004 Imm-Pneumococcal (1 of 2 - PCV) 01/30/2004 Hypertension Screening (#1) 09/03/2023 Dental Prophy 02/19/2024 08/18/2023, 02/23, 09/03/2022 Alcohol and Drug Screen 02/23/2024 Depression Annual Screen 02/23/2024 Dental BW 08/19/2024 08/18/2023, 09/03/2022 Dental Examination 08/19/2024 08/18/2023, 0 03/20/2023, 09/03/2022 Dental Perio Charting 08/19/2024 08/18/2023, 023 [id number] ( season) 2024 Imm-Influenza (#1) 2024 12/26/2021 Procedures Procedure Name Priority Date/Time Associated Diagnosis Comments COMP PERIODONTAL EVALUATION - NEW/EST PATIENT Routine 08/18/2023 3:40 PM EDT Encounter for dental examination BITEWINGS - FOUR RADIOGRAPHIC IMAGES Routine 08/18/2023 3:40 PM EDT Encounter for dental examination Full PROPHYLAXIS - ADULT Routine 024 3:40 PM EDT Encounter for dental examination Full PERIODIC ORAL EVALUATION ESTABLISHED PATIENT Routine 08/18/2023 3:40 PM EDT Encounter for dental examination from Last 3 Months or Most Recently Relevant to Health Maintenance Insurance [facility]
[2024-11-01 20:56] VITALS: BP 126/83; PULSE 79; RESP 16; TEMP 36.7; O2SAT 98
[2024-11-02 00:20] LABS: CT PCR Urine NOT DETECTED (Not Detect.); NG PCR Urine NOT DETECTED (Not Detect.)
== END 2024-11-01 21:10 | disposition home or self-care (01) ==
PROVIDERS: Physician Assistant Medical; Emergency Provider Student in an Organized Health Care Education/Training Program; PCP Internal Medicine
DX: N45.3 Epididymo-orchitis (principal); N50.811 Right testicular pain
CPT/HCPCS: 76870; 81001; 87086; 87491; 87591; 93975; 99284

== ENCOUNTER → 2024-11-01 17:42 | Outpatient (BNV) | payer BC, SELFPAY | PROVIDERS: PCP Internal Medicine; Visit Provider Radiology Diagnostic Radiology | DX: N50.811 Right testicular pain (principal) | CPT/HCPCS: 93975 ==

== ENCOUNTER 2024-11-27 15:44 | Outpatient (AMB) | payer BC, SELFPAY ==
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
--- OUTSIDE RECORDS SUMMARY | 2024-11-27 18:04 | XMS_ITS | Encounter Summary ---
Author Organization [facility] Address [address] [place] [address] Care Team Providers Care Rubbish Collector Name Role Phone Pcp, No Primary Care Provider Unavailabl e Encounter Details Date Type Department Care Team (Late st Contact Info) Description 12/27/2020 Scanned Document [address] [phone] Provider, Generic Social History Tobacco Use Types [...] on filedocumented in this encounter Care Teams Rubbish Collector Relationship Specialty Start Date End Date Pcp, No PCP - General General Medicine 08/02/15 documented as of this encounter
--- OUTSIDE RECORDS SUMMARY | 2024-11-27 18:04 | XMS_ITS | Encounter Summary ---
Author Organization [facility] Address [address] [place] [address] Care Team Providers Care Combat Control Name Role Phone Pcp, No Primary Care Provider Unavailabl e Encounter Details Date Type Department Care Team (Late st Contact Info) Description 08/04/2015 Scanned Document [address] [phone] Provider, Generic Social History Tobacco Use Types [...] on filedocumented in this encounter Care Teams Combat Control Relationship Specialty Start Date End Date Pcp, No PCP - General General Medicine 08/02/15 documented as of this encounter
--- OUTSIDE RECORDS SUMMARY | 2024-11-27 18:04 | XMS_ITS | Clinical Summary ---
Author Organization [address] Address [address] [place] [address] Phone Care Team Providers Care Engagement Lead Name Role Phone Antonia Schroeder MD Primary Care Provider [phone] Social History Tobacco Use Types Packs/Day Years [...] Years) (1 of 2 - PCV) 01/30/2004 HPV Vaccines (1 - 3-dose SCD M series) 01/30/2012 HIV Screening 01/20/2022 Hepatitis C Screening 01/20/2022 Social Influencers of Health Screening 01/20/2022 Depression Screening 02/23/2024 COVID-19 Vaccine (3 - 2024-2 6 season) 2024 07/06/2020, 06/07/2020 Influenza Vaccine (#1) 2024 Diabetes: Blood Sugar Contro l Test (HGBA1C) 12/05/2024 06/05/2024, 01/17/2024 Diabetes: Annual Urine Albumin-Creatinine Ratio (uACR) 01/16/2025 01/17/2024 Diabetes: Annual GFR (Glomerular Filtration Rate) 06/05/2025 06/05/2024, 01/17/2024 DTaP,Tdap,and Td Vaccines (2 - Td or Tdap) 08/01/2025 08/02/2015 Cholesterol Screening (Lipid Panel) 06/05/2029 06/05/2024, 01/17/2024 RSV Immunization Adult Patients (1 - 1-dose 75+ series) 01/30/2060 HIB Vaccines Aged Out No longer eligi [...] Routine 06/05/2024 3:44 PM EDT Diabetes mellitus (CMS/HCC V24, CMS/HCC V28) Mixed hyperlipidemia Obstructive sleep apnea (adult) (pediatric) Essential hypertension, malignant HEMOGLOBIN A1C Routine 06/05/2024 3:44 PM EDT Diabetes mellitus (CMS/HCC V24, CMS/HCC V28) Mixed hyperlipidemia Obstructive sleep apnea (adult) (pediatric) Essential hypertension, malignant LIPID PANEL WITH REFLEX TO DIRECT LDL Routine 06/05/2024 3:44 PM EDT Diabetes mellitus (CMS/HCC V24, CMS/HCC V28) Mixed hyperlipidemia Obstructive sleep apnea (adult) (pediatric) Essential hypertension, malignant MICROALBUMIN CREATININE URINE RATIO Routine 01/17/2024 3:37 PM EST Diabetes mellitus (CMS/HCC V24, CMS/HCC V28) Morbid obesity (CMS/HCC V24, CMS/HCC V28) Mixed hyperlipidemia Nonspecific elevation of levels of transaminase or lactic acid dehydrogenase (LDH) from Last 3 Months or Most Recently Relevant to Health Maintenance Results * (ABNORMAL) Lipid panel with reflex to direct LDL (06/05/2024 3:44 PM EDT) Cholesterol 229(H) 0 - 200 mg/dL LAB CHEMISTRY METHOD 06/05/2024 5:08 PM EDT [facility] Triglycerides 358(H) 0 - 150 mg/dL LAB CHEMISTRY METHOD 06/05/2024 5:08 PM EDT [facility] HDL 32(L) >=40 mg/dL LAB CHEMISTRY METHOD 06/05/2024 5:08 PM EDT [facility] LDL Calculated 125(H) 0 - 100 mg/dL LAB CHEMISTRY METHOD 06/05/2024 5:08 PM EDT [facility] VLDL Cholesterol Carlos Eduardo 71.6 mg/dL LAB CHEMISTRY METHOD 06/05/2024 5:08 PM EDT [facility] Non HDL Chol. (LDL+VLDL) 197(H) <145 mg/dL LAB CHEMISTRY METHOD 06/05/2024 5:08 PM EDT [facility] Chol/HDL Ratio 7.2(H) 0.0 - 4.4 LAB CHEMISTRY METHOD 06/05/2024 5:08 PM EDT [facility] Blood Venous blood specimen / Unknown Venipuncture / Unknown 06/05/2024 3:44 PM EDT 06/05/2024 4:07 PM EDT us Antonia Schroeder MD LAB BLOOD ORDERABLES Final Re sult [facility] [address] [place] [address], * Hemoglobin A1c (06/05/2024 3:44 PM EDT) Hemoglobin A1C 6.3 <6.5 % LAB CHEMISTRY METHOD 06/05/2024 10:12 PM EDT [facility] Mean Bld Glu Estim. 134 mg/dL LAB CHEMISTRY METHOD 06/05/2024 10:12 PM [facility] Blood Venous blood specimen / Unknown Venipuncture / Unknown 06/05/2024 3:44 PM EDT 06/05/2024 4:07 PM EDT us Antonia Schroeder MD LAB BLOOD ORDERABLES Final Re sult [facility] [address] [place] [address], [place] [phone] * Comprehensive metabolic panel (06/05/2024 3:44 PM EDT) Sodium 141 133 - 145 mmol/L LAB CHEMISTRY METHOD 06/05/2024 5:08 PM [facility] Potassium 3.8 3.5 - 5.5 mmol/L LAB CHEMISTRY METHOD 06/05/2024 5:08 PM [facility] Chloride 109 96 - 110 mmol/L LAB CHEMISTRY METHOD 06/05/2024 5:08 PM [facility] CO2 28 21 - 32 mmol/L LAB CHEMISTRY METHOD 06/05/2024 5:08 PM [facility] Anion Gap 4 3 - 11 LAB CHEMISTRY METHOD 06/05/2024 5:08 PM [facility] Glucose 76 70 - 100 mg/dL LAB CHEMISTRY METHOD 06/05/2024 5:08 PM [facility] BUN 16 5 - 25 mg/dL LAB CHEMISTRY METHOD 06/05/2024 5:08 PM [facility] Creatinine 1.14 0.70 - 1.30 mg/dL LAB CHEMISTRY METHOD 06/05/2024 5:08 PM [facility] eGFR 84 >=60 mL/min/1. 73m2 LAB CHEMISTRY METHOD 06/05/2024 5:08 PM EDT [facility] Comment:Calculation based on the Chronic Kidney Disease Epidemiology Collaboration (CKD-EPI) equation refit without adjustment for race. BUN/Creatinine Ratio 14.0 LAB CHEMISTRY METHOD 06/05/2024 5:08 PM [facility] Calcium 8.9 8.5 - 10.5 mg/dL LAB CHEMISTRY METHOD 06/05/2024 5:08 PM [facility] AST (SGOT) 27 10 - 42 unit/L LAB CHEMISTRY METHOD 06/05/2024 5:08 PM [facility] ALT (SGPT) 53 10 - 60 unit/L LAB CHEMISTRY METHOD 06/05/2024 5:08 PM [facility] Alkaline Phosphatase 62 42 - 121 unit/L LAB CHEMISTRY METHOD 06/05/2024 5:08 PM [facility] Total Protein 7.4 6.0 - 8.0 g/dL LAB CHEMISTRY METHOD 06/05/2024 5:08 PM [facility] Albumin 3.8 3.2 - 5.0 g/dL LAB CHEMISTRY METHOD 06/05/2024 5:08 PM [facility] Total Bilirubin 0.3 0.0 - 1.4 mg/dL LAB CHEMISTRY METHOD 06/05/2024 5:08 PM [facility] Blood Venous blood specimen / Unknown Venipuncture / Unknown 06/05/2024 3:44 PM EDT 06/05/2024 4:07 PM EDT us Antonia Schroeder MD LAB BLOOD ORDERABLES Final Re sult [facility] [address] [place] [address], * Microalbumin creatinine urine ratio (01/17/2024 3:37 PM EST) Creatinine, Urine 160.0 mg/dL LAB CHEMISTRY METHOD 01/17/2024 7:54 PM EST [facility] Microalb, Ur 15.8 0.0 - 29.0 mg/L LAB CHEMISTRY METHOD 01/17/2024 7:54 PM EST [facility] Microalb/Creat Ratio 10 <30 mg/g creat LAB CHEMISTRY METHOD 01/17/2024 7:54 PM EST [facility] Urine Urine specimen obtained by clean catch procedure / Unknown Non-blood Collection / Unknown 01/17/2024 3:37 PM EST 01/17/2024 3:37 PM EST us Antonia Schroeder MD LAB URINE ORDERABLES Final Re sult [facility] [address] [place] [address], from Last 3 Months or Most Recently Relevant to Health Maintenance Insurance [facility]) Care Teams Engagement Lead Relationship Specialty Start Date End Date Antonia Schroeder MD [facility] [address] PCP - General Internal Medicine 07/11/21
--- OUTSIDE RECORDS SUMMARY | 2024-11-27 18:04 | XMS_ITS | Clinical Summary ---
Author Organization [facility] Address [address] [place] [address] Care Team Providers Care Anodizing Line Operator Name Role Phone Pcp, No Primary Care [...] of 3 - 19+ 3-dose series) 01/30/2004 Influenza Vaccine 09/22/2024 12/26/2021 COVID-19 Vaccine (1 - 2023-2 5 season) 2024 HPV Vaccines (No Doses Required) Completed Pneumococcal Vaccine: Pediat dedra (0-5 Years) and At-Risk Patients (6 to 49 Years) Aged Out No longer eligible b ased on patient's age to complete this topic Insurance [facility] Care Teams Anodizing Line Operator Relationship Specialty Start Date End Date Pcp, No PCP - General General Medicine 08/02/15
--- OUTSIDE RECORDS SUMMARY | 2024-11-27 18:04 | XMS_ITS | Clinical Summary ---
Author Organization [facility] Address [address] [place] [address] Care Team Providers Care Manufacturing Support Engineer Name Role Phone Unavailable Primary Care Provider [...] Problems Problem Noted Date Diagnosed Date Diabetes 03/20/2023 Social History Tobacco Use Types Packs/Day [...] Imm-Pneumococcal (1 of 2 - PCV) 01/30/2004 Imm-HPV (1 - 3-dose SCDM series) 01/30/2012 Hypertension Screening (#1) 09/03/2023 Dental Prophy 02/19/2024 08/18/2023, 02/23, 09/03/2022 Alcohol and Drug Screen 02/23/2024 Depression Annual Screen 02/23/2024 Dental BW 08/19/2024 08/18/2023, 09/03/2022 Dental Examination 08/19/2024 08/18/2023, 0 03/20/2023, 09/03/2022 Dental Perio Charting 08/19/2024 08/18/2023, 023 [id number] ( season) 2024 Imm-Influenza (#1) 2024 12/26/2021 [...] Most Recently Relevant to Health Maintenance Insurance [facility]
== END 2024-11-27 15:59 | disposition home or self-care (01) ==
LOC: HO.HSM 15:44
PROVIDERS: PCP Internal Medicine; Visit Provider Registered Nurse
DX: G44.209 Tension-type headache, unspecified, not intractable (principal); R42 Dizziness and giddiness
CPT/HCPCS: 99214